=== PATIENT | female | born 1980 | race Caucasian/White ===

== ENCOUNTER 2017-01-24 23:44 | Emergency (ER) | payer OTHER ==
--- NOTE | 2017-01-24 23:48 | PDOC ---
History of Present Illness - General Chief Complaint: Injury Stated Complaint: LEFT SHOULDER PAIN S/P FALL/ SKATING Time Seen by Provider: 01/24/17 23:46 - History of Present Illness Initial Comments: This 36-year-old woman with no significant past medical history presents with left shoulder injury: Patient was ice skating when another skater blocked her and she fell, striking the side of her left shoulder. Since then, she said pain in the shoulder, worse with movement. No previous history of left upper extremity injury. She describes temporary numbness of her distal right arm after the injury; this has resolved. There was no head/neck injury. No loss of consciousness with fall. She denies headache/neck pain/ chest pain/ shortness of breath /abdominal pain or other extremity injury. Past History - Past Medical History Allergies/Adverse Reactions: Allergies Allergy/AdvReac Type Severity Reaction Status Date / Time No Known Allergies Allergy Verified 01/24/17 23:45 Home Medications: Ambulatory Orders Diclofenac Sodium 75 mg PO BID PRN #20 tablet. 01/25/17 Review of Systems - Review of Systems Able to Perform ROS?: Yes Comments:: 12 point review of systems is negative except for what is noted in the history of present illness *Physical Exam - Physical Exam Comments: GENERAL: Adult female, moderate distress secondary to left shoulder pain HEAD: Normal with no signs of trauma. EYES: PERRLA, EOMI, sclera anicteric, conjunctiva clear. ENT: Ears normal, nares patent, oropharynx clear without exudates. Moist mucous membranes. NECK: Normal range of motion, supple without lymphadenopathy, JVD, or masses. LUNGS: Breath sounds equal, clear to auscultation bilaterally. No wheezes, and no crackles. CHEST WALL: No point tenderness/crepitus noted No tenderness or deformity of either clavicle noted HEART:Regular rate and rhythm, normal S1 and S2 without murmur, rub or gallop. ABDOMEN:.normal bowel sounds No guarding,tenderness or rebound.No masses No distention. EXTREMITIES: Left upper extremity-moderate tenderness/moderate edema of anterior /superior aspect of shoulder joint Marked pain with abduction of arm greater than 20 No pain with extension or rotation of elbow No deformity/ tenderness/edema of the distal humerus/elbow/forearm Remainder of the extremity exam is normal NEUROLOGICAL: Cranial nerves II through XII grossly intact. Normal speech. No focal neurological deficits. MUSCULOSKELETAL: Back non-tender to palpation, no CVA tenderness SKIN: Warm, Dry, normal turgor, no rashes or lesions noted. Progress Note - Progress Note Progress Note: Left shoulder x-ray including Y view shows minimally displaced fracture of the greater tubercle of the humerus without dislocation. No other injury evident. Results discussed with the patient. Sling applied. The patient does not have an orthopedist and will be referred to Drs. Sarmiento/ Louisa. She should call the office on Thursday, January 26 to arrange follow-up within the next few days. Patient works as a medical stenographer. She should not work until evaluation by an orthopedist and she has been given work documentation regarding this. Motrin 600 mg has been administered. Diclofenac 75 mg twice a day as needed for more severe pain (#20) has been transmitted to her pharmacy *DC/Admit/Observation/Transfer Diagnosis at time of Disposition: Proximal humerus fracture Qualifiers: Encounter type: initial encounter Fracture type: closed Fracture morphology: other fracture Fracture alignment: displaced Laterality: left Qualified Code(s) : S42.292A - Other displaced fracture of upper end of left humerus, initial encounter for closed fracture - Discharge Dispostion Disposition: HOME Condition at time of disposition: Stable - Prescriptions Prescriptions: Diclofenac Sodium 75 mg PO BID PRN #20 tablet.dr MELENDREZ Reason: Moderate Pain - Referrals Referrals: Curt Sarmiento MD [Staff Physician] - 3 days - Patient Instructions Printed Discharge Instructions: DI for Shoulder Fracture Additional Instructions: Keep left arm in sling until seen by orthopedist Apply ice to shoulder as much as possible over the next 48 hours No work until seen by orthopedist Call orthopedist(Dr Sarmiento) Thursday, Jan 26 to arrange followup Motrin/Aleve/Tylenol as needed for mild pain Diclofenac 75 mg twice a day as needed for moderate pain - Post Discharge Activity Forms/Work/School Notes: Back to Work
[2017-01-24 23:53] VITALS: BP 132/95; PULSE 102; TEMP 99; BMI 31.2
[2017-01-25] MEDS ORDERED: IBUPROFEN 600 MG TABLET (FP) PO ONE ×2 (01:13→01:19)
== END 2017-01-25 01:28 | disposition home or self-care (01) ==
LOC: FER 23:44
DX: S42.292A Other displaced fracture of upper end of left humerus, initial encounter for closed fracture (principal); Y93.21 Activity, ice skating; W18.39XA Other fall on same level, initial encounter; Y93.89 Activity, other specified; Y92.330 Ice skating rink (indoor) (outdoor) as the place of occurrence of the external cause
CPT/HCPCS: 73030-TC-LT; 99282-25